=== PATIENT | male | born 1960 | race Caucasian/White ===

== ENCOUNTER 2016-07-04 07:40 | Emergency (ER) | payer BC ==
[~2016-07-04] VITALS: Ht 177.8 cm; Wt 75.2 kg
[~2016-07-04 07:40] MED LIST: ALBU17AE20 IH; IBUP-1264 PO; OMEP20TA11 PO; SERT-77 PO
[2016-07-04 07:42] VITALS: TEMP 97.9; Ht 177.8 cm; Wt 75.2 kg
--- OUTSIDE RECORDS SUMMARY | 2016-07-04 07:44 | XMS REPORT | Continuity of Care Document ---
Author Author [facility] Organization [facility] Address Unknown Phone Unavailable Allergies Active Description Code Type Severity Reaction Onset Reported/Identified Relationship to Patient Clinical Status Yes Adhesive Bandage Other N/A N/A 10/01/2013 Yes vancomycin NKMA N/A hives 10/01/2013 Medications Problems Procedures Results Encounters ACCT No. Visit Date/Time Discharge Status Pt. Type Provider Facility Loc./Unit Complaint [id number] 05/17/2013 15:20:00 05/17/2013 23 :59:59 CLS Outpatient
--- OUTSIDE RECORDS SUMMARY | 2016-07-04 07:44 | XMS REPORT | Continuity of Care Document ---
Author Author Adi Valdez MD [facility] Address [address] [place] [facility] [place] [place] [address] Phone Care Team Providers Care Tube Winder Hand Name Role Phone Adi Valdez PP Unavailable Payers Payer name Insurance type Covered alliance party ID Authorization(s) Unknown Problems Condition Effective Dates (start - stop) Clinical Status Sinusitis, Acute - *Acute Labyrinthitis - *Acute Depression - *Chronic GERD - *Chronic Osteoarthrosis, generalized, involving unspecified site - * Chronic Anemia - *Chronic Asthma - *Chronic GERD - *Chronic Asthma - *Chronic Osteoarthrosis, generalized, involving unspecified site - * Chronic Depression - *Chronic Osteoarthrosis, generalized, involving unspecified site - Chronic Depression - Chronic Fatigue / Malaise - *Chronic Anemia - *Chronic Body aches - *Acute Fatigue - *Acute Family History Family Member Diagnosis Age At Onset Status Unknown Social History Social History Element Description Quantity Unknown Allergies, Adverse Reactions, Alerts Substance Reaction Severity Status VANCOMYCIN HCL HIVES Unknown ADHESIVE BANDAGE Unknown DEXTROSE 5 % IN WATER HIVES Unknown Medications Medication Instructions Dosage Effective Dates (start - stop) Status amoxicillin 500 mg capsule take 1 capsule (500MG) by oral route every 8 hours for 10 days 500 MG - No Longer Active Prilosec OTC 20 mg tablet,delayed release 1 c, PO, QD - Active ibuprofen 200 mg tablet take 2 Tablet (400MG) by oral route 2 times every day as needed with food as needed 400 MG - Active Wellbutrin XL 150 mg 24 hr tablet, extended release take 1 tablet (150MG) by oral route every day 150 MG - Active albuterol sulfate HFA 90 mcg/actuation aerosol inhaler Inhale 2 puffs by mouth 4 times a day as needed. - Active Immunizations Vaccine Date Status Comments Unknown Results Test Name Date and Time Measure Units Reference Range Abnormal Flag Comments Unknown Vital Signs Date / Time: Height Weight Pulse Rate Blood Pressure Temperature /15:21:00 71.00 in 160.00 lbs 80 /min 142/88 mm[Hg] 98.6 F Procedures Procedure Date Unknown Encounters Encounter Location Date Patient Visit [facility] Patient [facility] Patient [facility] Patient Visit [facility] Patient Visit [facility] Patient Visit Conversion Advance Directives Directive Effective Date Unknown
--- OUTSIDE RECORDS SUMMARY | 2016-07-04 07:44 | XMS REPORT | Referral Summary ---
Author Author [facility] Organization [facility] Address Unknown Phone Unavailable Care Team Providers Care Tea Blender Name Role Phone Jennifer Valdez Primary Care Physician [phone] Encounter VC Date(s): 03/20/15 - 03/20/15 [facility] [address] [place] [address]- Discharge Diagnosis: Gastroesophageal reflux disease Discharge Diagnosis: Depression Discharge Diagnosis: Generalized osteoarthritis (disorder) Discharge Diagnosis: Asthma without status asthmaticus (disorder) Discharge Disposition: 01-Home or Self Care Attending Physician: Adi Valdez MD Admitting Physician: Adi Valdez MD Vital Signs Most recent to 1 oldest [Reference Range]: Temperature Tympanic 36.6 degC [36.6-38.1 degC] (03/20/15 3:46 PM) Peripheral Pulse 76 bpm Rate [60-100 bpm] (03/20/15 3:46 PM) Respiratory Rate 16 br/min [14-20 br/min] (03/20/15 3:46 PM) Blood Pressure 144/86 mmHg [90-140/60-90 mmHg] *HI* (03/20/15 3:46 PM) Problem List Condition Effective Dates Status Health Status Informant Anemia Active (disorder)(Confirmed ) Asthma(Confirmed) Active Bronchitis(Confirmed Active ) Generalized Active osteoarthritis (disorder)(Confirmed ) Gastroesophageal Active reflux disease (disorder)(Confirmed ) Asthma without Active status asthmaticus (disorder)(Confirmed ) Osteoarthritis(Confi Active rmed) Depression(Confirmed Active ) Tension Active headache(Confirmed) Allergies, Adverse Reactions, Alerts Substance Reaction Severity Status Adhesive Bandage Active vancomycin hives Active Medications buPROPion 300 mg/24 hours (XL) oral tablet, extended release 300 mg 1 tabs, Oral, Daily, # 30 tabs, 6 Refill(s), Pharmacy: [facility] [id number], 1 tabs Oral Daily Start Date: 03/20/15 Status: Ordered ibuprofen 200 mg oral tablet 2 tabs, Oral, q4hr, as needed for fever, # 120 tabs, 0 Refill(s) Start Date: 10/01/13 Status: Ordered PriLOSEC OTC 20 mg oral delayed release tablet 20 mg, Oral, Daily, # 30 tabs, 6 Refill(s), Pharmacy: [facility] [id number] , 20 mg Oral Daily Start Date: 03/20/15 Status: Ordered Proventil HFA 90 mcg/inh inhalation aerosol See Instructions, 2 PUFFS INHALATION QID,PRN: NEEDED FOR WHEEZING, # 1 Each, 6 Refill(s), Pharmacy: [facility] [id number] Start Date: 03/20/15 Status: Ordered Results No data available for this section Immunizations No data available for this section Procedures Procedure Date Related Diagnosis Body Site Colonoscopy1, 2 Esophagogastroduodenoscopy3 1Colonoscopy within normal limits, moderate internal hemorrhoidal disease. Plan repeat colonoscopy in 10 years (02/15/2018) 2010 Normal Colonoscopy. Repeat in 2020 3EGD with KIET assay positive for H Pylori. Treated with prevacid. 2010 Positive for barretts, treated with PPI, repeat EGD in 1 year. 2007 2010 Social History Social History Type Response Smoking Status Current every day smoker; Type: Cigarettes; Tobacco use per day: 1 Pack Assessment and Plan Extracted from: Title: Office Visit Note Author: Adi Valdez MD Date: 03/20/15 Assessment/Plan Asthma without status asthmaticus (disorder) Continued intermittent use of albuterol. If he is finding that he is needing his inhaler more frequently he' ll let us know. Recheck in 1 year. Ordered: Comprehensive Metabolic Panel Lipid Panel Office Visit Level 4 Est 95661 Depression Chronic stableno change in current treatment is recommended recheck in 1 year. Ordered: Comprehensive Metabolic Panel Lipid Panel Office Visit Level 4 Est 66914 Gastroesophageal reflux disease Chronic and stable continue current treatment recheck in 1 year. Ordered: Office Visit Level 4 Est 67530 Generalized osteoarthritis (disorder) Overall stable no change in current treatment recommended. Ordered: Office Visit Level 4 Est 02613 Orders: albuterol, See Instructions, 2 PUFFS INHALATION QID,PRN: NEEDED FOR WHEEZING, # 1 Each, 6 Refill(s), Pharmacy: [email or web address] [id number] buPROPion, 300 mg 1 tabs, Oral, Daily, # 30 tabs, 6 Refill(s), Pharmacy: [facility] [id number], 1 tabs Oral Daily omeprazole, 20 mg, Oral, Daily, # 30 tabs, 6 Refill(s), Pharmacy: [facility] [id number], 20 mg Oral Daily I did recommend some screening lab and he'll come in thi extra week including a CMP and lipid panel.
[2016-07-04] MEDS ORDERED: KETOROLAC 60mg/2ml INJECTION IM ONE (08:00)
[2016-07-04] MEDS ORDERED: ORPHENADRINE 60mg/2ml INJECTION IM ONE (08:00)
--- NOTE | 2016-07-04 08:03 | ERPDOC ---
Departure Disposition Decision Date: Jul 04, 2016 Disposition Decision Time: 08:00 Disposition: 01 DISCHARGED HOME, SELF-CARE Impression Impression Impression: Primary Impression: Sciatica Laterality: left Qualified Codes: M54.32 - Sciatica, left side Severity: Mild Condition: Improved Seen By: Physician only Referrals: VAHID BAEZ MD (Family) 2 Days Patient Instructions: Sciatica (ED) Problems/Meds/Labs Reviewed?: Yes Medications reviewed and manag: Yes Follow up care ordered?: Yes Mental Status: Alert, Oriented Scripts Hydrocodone/Acetaminophen ([place] 7.5-325 Tablet) 7.5-325 Tablet 1 TAB PO Q4HR Y for PAIN for 2 Days, #12 TAB 0 Refills Prov: LATASHA EPPS DO 07/04/16 Cyclobenzaprine HCl (Cyclobenzaprine HCl) 10 Mg Tablet 10 MG PO TID Y for MUSCLE SPASM for 5 Days, #15 TAB 0 Refills Prov: LATASHA EPPS DO 07/04/16 Naproxen (Naprosyn) 500 Mg Tablet 1 TAB PO BID Y for PAIN for 10 Days, #20 TAB 0 Refills Prov: LATASHA EPPS DO 07/04/16 HPI - General Medical General Chief Complaint: Lower Extremity Pain Stated Complaint: PINCHED NERVE Time Seen by Provider: 07:47 Source: patient Exam Limitations: no limitations HPI - General Medical Initial Comments 56-year-old male presents to emergency department with a chief complaint of a possible pinched nerve. Patient noted onset of symptoms "earlier this week." Patient denies any trauma or injury. Patient describes the pain as a sharp sensation that starts over the left buttock and radiates down to his toes. Pain increases with sitting or movement. Pain improves with rest and nonsteroidal anti-inflammatory medications. No other complaints or associated symptoms. Patient was at home when his symptoms began. Symptoms been persistent in a gradual manner since onset. Patient describes the discomfort as moderate in nature when present. Patient denies any numbness, tingling, fever, chills, saddle anesthesia, abdominal pain, IV drug abuse, loss of bowel or bladder control, anticoagulation , focal weakness or other warning signs of back pain at this time. Occurred At: home Onset: Gradual Allergies: Coded Allergies: adhesive tape (Verified Allergy, Unknown, RXN TO PLASTIC TAPE, 07/04/16) vancomycin (Verified Allergy, Unknown, UNKNOWN, 07/04/16) Past History Past Medical History GI: GERD Hematologic: anemia Psychological: alcohol abuse, depression Surgical History General: EGD, colonoscopy Family History Family PMH: FOUND: cancer, diabetes Vaccines Hx Influenza Vaccination: No Hx Pneumococcal Vaccination: No Social History Smoking Status: Current every day smoker Substance Use Type: does not use Alcohol Intake: none Review of Systems Constitutional Constitutional: DENIES: chills, fever Eyes General: DENIES: erythema, exudate Lids/Accessories: DENIES: erythema, swelling Vision: DENIES: acuity, blurring ENMT Ears: DENIES: drainage, erythema Hearing: DENIES: hearing loss Balance: DENIES: ataxia, falling to one side Sinuses: DENIES: congestion, pain Nose: DENIES: nosebleeds, pain Mouth/Throat: DENIES: painful swallowing, sore throat Teeth: DENIES: pain Jaw: DENIES: pain Cardiovascular Cardiac: DENIES: chest pain, dyspnea on exertion Rhythm/Rate: DENIES: irregular beat, palpitations Vascular: DENIES: pedal edema, unilateral swelling Pulmonary Respiratory: DENIES: cough, dyspnea, pleuritic chest pain, sputum GI Upper Abdomen: DENIES: nausea, pain, vomiting Lower Abdomen: DENIES: diarrhea, pain General: DENIES: dysuria, frequency Musculoskeletal General: tenderness, DENIES: joint pain Integumentary Skin: DENIES: itching, rash Neurological General: DENIES: change in strength, headache, numbness, weakness Psychiatric Psychiatric: DENIES: emotional instability, suicidal ideation/attempt Endocrine Endocrine: DENIES: polydipsia, polyphagia Hematologic/Lymphatic Hematologic/Lymphatic: DENIES: frequent nosebleeds, lymphadenopathy Allergic/Immunological Allergic/Immunoligical: DENIES: allergic reactions, hives Physical Exam General General Nourishment: well nourished, well developed, appears stated age, no acute distress, adult General Body Habitus: well groomed Vitals and Pain First Documented Vital Signs Date Time Temp Pulse Resp B/P Pulse Ox O2 Delivery O2 Flow Rate FiO2 07/04/16 07:42 97.9 83 16 168/91 98 Room Air Weight: Kilograms: 75.200 Height (feet): 5 Height (inches): 10.00 Triage Pain Scale: RN VS reviewed by Provider: Yes Normal Exams: Head: Normocephalic w/o trauma Eyes: Pupils are PERRLA w/ EOMI, No scleral icterus, irritation, or foreign bodies noted ENMT: No facial trauma, nasal exudates, pharyngeal erythema, or exudates are noted Dental: No fractured, loose, or missing teeth noted Neck: Full range of motion, without adenopathy, JVD, bruits or thyromegaly Chest/Resp: Clear all ortiz, with good airflow, and symmetry bilaterally CV: Regular rate and rhythm, without murmur or gallop, Pulses 2+ all extremities, capillary refill, <2 seconds all ext., no pedal edema noted Abdomen: Bowel sounds positive, soft, non-tender, non-distended, no hepatosplenomegaly, masses or bruits noted Lymphatic: No lymphadenopathy, or lymphedema noted Musculoskeletal: No tenderness, or deformity noted, good range of motion, all extremities Integumentary: No rashes, hives, or bruising noted, hair and nails, without abnormality Neurologic: Patient is alert, and oriented, cranial nerves, motor/sensory/ cerebellar, exams w/o gross deficits, to observation Psychiatric: Patient exhibits, appropriate attention, emotion and affect Musculoskeletal (brief) Comments Back - no midline tenderness or deformity of the cervical/thoracic/lumbar spine. + Left SI tenderness to palpation. Neurologic (brief) Comments Alert and oriented 4. CN 2-12 intact. Sensation intact. Strength normal. Gait normal. Normal motor. Normal coordination. Normal speech. Reflexes 2/4 in all extremities. Absent Babinski bilaterally. No focal neurologic deficit. Unremarkable neurologic examination. Differential Diagnoses Considering: Other (Sciatica, sprain, strain, muscle spasm) Progress Results/Orders Orders Procedure Category Date Status Time Ketorolac (Toradol) PHA 07/04/16 Complete 08:00 Orphenadrine (Norflex) PHA 07/04/16 Complete 08:00 Medications Current ED Medications Ketorolac Tromethamine (Toradol) 60 mg O ONCE IM Last administered on 08:14; Start 07/04/16 at 08:00; Stop 07/04/16 at 08:01; Status DC Orphenadrine Citrate (Norflex) 60 mg O ONCE IM Last administered on 07/04/16 08:14; Start 07/04/16 at 08:00; Stop 07/04/16 at 08:01; Status DC Progress Progress Patient declined recommended x-ray of the lumbar spine. Patient is given Toradol 60 mg IM times one and Norflex 60 mg IM 1 with improvement of symptoms. Patient is discharged home in improved condition. He is to follow up as instructed. Patient is to return to the emergency department if his condition worsens or changes in any manner. Patient is in agreement with the current plan of management. Prescriptions for [place], Flexeril, and Naprosyn are provided. Patient is instructed not to use any other nonsteroidal anti- inflammatories while using the Naprosyn. Patient verbalizes agreement and understanding. Patient is discharged home in improved condition. LATASHA EPPS DO Jul 04, 2016 08:03 LATASHA EPPS DO Jul 04, 2016 08:03
[2016-07-04] MEDS ORDERED: CYCL-375 PO (08:05)
[2016-07-04] MEDS ORDERED: NAPR500T PO (08:05)
[2016-07-04] MEDS ORDERED: HYDR-347 PO (08:05)
--- OUTSIDE RECORDS SUMMARY | 2016-07-04 08:17 | XMS REPORT | Continuity of Care Document ---
Author Author [facility] Organization [facility] Address Unknown Phone Unavailable Allergies Active Description Code Type Severity Reaction Onset Reported/Identified Relationship to Patient Clinical Status Yes Adhesive Bandage Other N/A N/A 10/01/2013 Yes vancomycin NKMA N/A hives 10/01/2013 Medications Problems Procedures Results Encounters ACCT No. Visit Date/Time Discharge Status Pt. Type Provider Facility Loc./Unit Complaint [id number] 05/17/2013 15:20:00 05/17/2013 23 :59:59 CLS Outpatient
[2016-07-04] MEDS ORDERED: ATOR20TA PO (08:27)
[2016-07-04] MEDS ORDERED: BUPR300T57 PO (08:27)
[2016-07-04 08:34] VITALS: BP 139/95; PULSE 78; RESP 16; O2SAT 98
--- NOTE | 2016-07-04 08:34 | NUR ---
DISMISSAL DISMISSAL INSTRUTIONS WIT RX X3. NO FURTER QUESTIONS AT TIS TIME. PT LEFT DEPARTMENT AMBUALTORY WIT
== END 2016-07-04 08:34 | disposition home or self-care (01) ==
LOC: ED 07:40
DX: M54.32 Sciatica, left side (principal)
CPT/HCPCS: 96372; 99283; J1885; J2360